=== PATIENT | male | born 1950 | race African-American/Black ===

== ENCOUNTER 2021-10-25 08:30 | Inpatient (IN) | payer OTHER, MEDICAID ==
[~2021-10-25] VITALS: Ht 188 cm; Wt 73.1 kg
[~2021-10-25 08:30] MED LIST: ACET-1080 PO; ALLO300T2 PO; BACL20TA PO; CHOL500021 PO; CHOLCAP10 PO; CYAN1TAB14 PO; DOCU-94 PO; FLUT110A IN; GABA-339 PO; KETO0.0233 LEFTEYE; MECL12.514 PO; MULT-1056 PO; TEMA30CA PO; TURM500C3 OR
[2021-10-25] MEDS ORDERED: ceFAZolin 1GM/50ML 100 ML IV ONE (09:12)
[2021-10-25] MEDS ORDERED: MINERAL OIL TOPICAL 10ml TOP ONE (09:21)
[2021-10-25] MEDS ORDERED: BUPIVACAINE W/ EPINEPH 0.5% INJ 50ML MDV IJ ONE (09:21)
[2021-10-25] MEDS ORDERED: THROMBIN (BOVINE) 5000 UNIT SOL VIAL ONE ×2 (09:21→10:44)
[2021-10-25] MEDS ORDERED: VANCOMYCIN HCL 1000 MG VL ONE (09:22)
[2021-10-25] MEDS ORDERED: MIDAZOLAM HCL 2MG/2ML 2ml VIAL (1mg/ml) ONE (09:42)
[2021-10-25] MEDS ORDERED: ONDANSETRON HCL 4 MG/2 ML VIAL ONE ×2 (09:42→14:00)
[2021-10-25] MEDS ORDERED: HYDROmorphone HCL 2 MG/ML VL/or syr ONE (09:42)
[2021-10-25] MEDS ORDERED: DexAMETHasone SOD PHOS 10MG/1ML VIAL INJ ONE ×2 (09:42→14:00)
[2021-10-25] MEDS ORDERED: fentaNYL CITRATE 100 MCG/2 ML VL ONE (09:42)
[2021-10-25] MEDS ORDERED: ROCURONIUM 10MG/ML 10ML VIAL IV ONE ×4 (09:42→14:00)
[2021-10-25] MEDS ORDERED: GLYCOPYRROLATE 0.2 MG/ML 1ML VIAL ONE ×2 (09:42→14:00)
[2021-10-25] MEDS ORDERED: PROPOFOL 10 MG/ML 20 ML IV ONE ×2 (09:43→14:00)
[2021-10-25] MEDS ORDERED: fentaNYL CITRATE 5 ML ONE (09:43)
[2021-10-25] MEDS ORDERED: TRANEXAMIC ACID 10 ML ONE ×2 (10:06→14:12)
[2021-10-25] MEDS ORDERED: NEOSTIGMINE 1 MG/ML INJ (10mg/10ML VIAL) ONE (14:00)
[2021-10-25] MEDS ORDERED: SUGAMMADEX 200mg/2ml Vial (100MG/ML) IV ONE (14:14)
[2021-10-25] MEDS: LACTATED RINGER'S 1,000 ML IV SCH (15:00)
[2021-10-25] MEDS ORDERED: HYDROmorphone HCL 2 MG/ML VL/or syr IV PRN ×3 (15:00→15:15)
[2021-10-25] MEDS ORDERED: NITROGLYCERIN 0.4 MG SL TAB SL PRN ×3 (15:00)
[2021-10-25] MEDS ORDERED: ONDANSETRON HCL 4 MG/2 ML VIAL IV PRN ×2 (15:00→15:15)
[2021-10-25] MEDS ORDERED: MORPHINE SULFATE INJ 2 MG/ml SYRG IV PRN ×3 (15:00)
[2021-10-25] MEDS ORDERED: oxyCODONE HCL 5MG TAB PO PRN (15:00)
[2021-10-25] MEDS ORDERED: METOCLOPRAMIDE HCL 5MG/ml INJ 2ml VIAL IV PRN (15:15)
[2021-10-25] MEDS ORDERED: fentaNYL CITRATE 100 MCG/2 ML VL IV PRN (15:15)
[2021-10-25] MEDS ORDERED: LABETALOL HCL 5 MG/ML 4ML SYRINGE IV PRN (15:15)
[2021-10-25] MEDS ORDERED: hydrALAZINE HCL 20 MG/ML VL IV PRN (15:15)
[2021-10-25 17:54] VITALS: BP 140/68
[2021-10-25 21:54] VITALS: BP 141/79
[2021-10-25] MEDS ORDERED: FLOVENT 110 MCG IN SCH (22:00)
[2021-10-25] MEDS: GABAPENTIN 300 MG CAP PO SCH (22:23)
[2021-10-25] MEDS: TEMAZEPAM 15 MG CAP PO SCH (22:23)
[2021-10-25] MEDS: ceFAZolin 1GM/50ML 50 ML IV SCH (22:23)
[2021-10-25] MEDS: DOCUSATE SOD 100 MG CAP PO SCH (22:24)
[2021-10-25] MEDS: SENNA 8.6 MG TAB PO SCH (22:24)
[2021-10-25] MEDS: MECLIZINE HCL 25 MG TAB PO SCH (22:24)
[2021-10-26] MEDS: LACTATED RINGER'S 1,000 ML IV SCH (01:30)
[2021-10-26 05:16] VITALS: BP 129/69
[2021-10-26 06:08] LABS: Basophils # (auto) 0 10 ^3/uL (0-0.2); Basophils % (auto) 0.1 % (0.0-2.0); Eosinophils # (auto) 0 10 ^3/uL (0-0.8); Hematocrit 34.2 % (41.0-53.0); Hemoglobin 11.6 g/dL (13.5-17.5); Lymphocytes # (auto) 0.8 10 ^3/uL (0.4-5.4); Lymphocytes % (auto) 7.9 % (10.0-50.0); Mean Corpuscular Hemoglobin 30.1 pg (28.0-32.0); Mean Corpuscular Hgb Conc. 33.8 g/dL (32.0-36.0); Mean Corpuscular Volume 89.1 fL (80.0-100.0); Monocytes # (auto) 0.5 10 ^3/uL (0-1.3); Monocytes % (auto) 5.5 % (0.0-12.0); Neutrophils # (auto) 8.5 10 ^3/uL (1.6-8.6); Neutrophils % (auto) 86.5 % (37.0-80.0); Red Blood Cells 3.84 10^6/uL (4.5-5.90); Red Cell Distribution Width 14.3 % (11.8-14.3); White Blood Cell 9.8 10^3/uL (4.4-10.8)
[2021-10-26] MEDS: ceFAZolin 1GM/50ML 50 ML IV SCH ×2 (06:11→14:30)
[2021-10-26] MEDS: GABAPENTIN 300 MG CAP PO SCH ×3 (06:12→21:00)
[2021-10-26] MEDS: MECLIZINE HCL 25 MG TAB PO SCH ×3 (06:12→21:01)
[2021-10-26 06:22] LABS: BUN/Creatinine Ratio 10.8; Calcium 7.8 mg/dL (8.5-10.1); Potassium 4.3 mmol/L (3.5-5.1)
[2021-10-26 08:28] VITALS: BP 129/72
[2021-10-26] MEDS: POLYETHYLENE GLYCOL 17 GM PWDR PO SCH (10:10)
[2021-10-26] MEDS: ALLOPURINOL 300 MG TAB PO SCH (10:10)
[2021-10-26] MEDS: OXYCODONE W/ ACETAMINOPHEN 5/325MG TABLET PO PRN ×3 (10:10→21:07)
[2021-10-26] MEDS: SENNA 8.6 MG TAB PO SCH ×2 (10:11→21:00)
[2021-10-26] MEDS: DOCUSATE SOD 100 MG CAP PO SCH ×2 (10:11→20:59)
[2021-10-26 12:54] VITALS: BP 143/88
[2021-10-26] MEDS ORDERED: TAMSULOSIN HYDROCHLORIDE 0.4 MG CAP PO ONE ×2 (13:45→14:15)
[2021-10-26] MEDS ORDERED: HEPARIN SODIUM (PORCINE) 5000 UNITS/ML 1ML VIAL SC SCH (14:00)
[2021-10-26 17:00] VITALS: BP 127/65
[2021-10-26] MEDS: TAMSULOSIN HYDROCHLORIDE 0.4 MG CAP PO SCH (18:25)
[2021-10-26 20:00] VITALS: BP 123/69
[2021-10-26] MEDS: TEMAZEPAM 15 MG CAP PO SCH (21:00)
[2021-10-26 22:00] VITALS: BP 123/69
[2021-10-27] VITALS (7 sets, daily range): BP systolic 105–135; BP diastolic 54–74
[2021-10-27 05:49] LABS: Basophils # (auto) 0 10 ^3/uL (0-0.2); Basophils % (auto) 0.5 % (0.0-2.0); Eosinophils # (auto) 0.1 10 ^3/uL (0-0.8); Eosinophils % (auto) 0.9 % (0.0-7.0); Hematocrit 31.9 % (41.0-53.0); Hemoglobin 11.1 g/dL (13.5-17.5); Lymphocytes % (auto) 12.6 % (10.0-50.0); Mean Corpuscular Hemoglobin 30.9 pg (28.0-32.0); Mean Corpuscular Hgb Conc. 34.8 g/dL (32.0-36.0); Monocytes # (auto) 0.7 10 ^3/uL (0-1.3); Monocytes % (auto) 9.1 % (0.0-12.0); Neutrophils # (auto) 6.3 10 ^3/uL (1.6-8.6); Neutrophils % (auto) 76.9 % (37.0-80.0); Nucleated Red Blood Cells % 0.1 %; Red Blood Cells 3.58 10^6/uL (4.5-5.90); Red Cell Distribution Width 14.1 % (11.8-14.3); White Blood Cell 8.2 10^3/uL (4.4-10.8)
[2021-10-27 06:03] LABS: INR 1.09 (0.9-1.15); Partial Thromboplastin Time 32.5 sec (23.6-33.0)
[2021-10-27 06:07] LABS: Potassium 3.9 mmol/L (3.5-5.1)
[2021-10-27] MEDS: GABAPENTIN 300 MG CAP PO SCH ×3 (06:07→22:17)
[2021-10-27] MEDS: MECLIZINE HCL 25 MG TAB PO SCH ×3 (06:07→22:17)
[2021-10-27 06:16] LABS: BUN/Creatinine Ratio 13.9; Calcium 7.7 mg/dL (8.5-10.1)
[2021-10-27] MEDS ORDERED: KETOTIFEN FUMARATE LEFTEYE SCH (10:00)
[2021-10-27] MEDS: ALLOPURINOL 300 MG TAB PO SCH (10:09)
[2021-10-27] MEDS: POLYETHYLENE GLYCOL 17 GM PWDR PO SCH (10:09)
[2021-10-27] MEDS: DOCUSATE SOD 100 MG CAP PO SCH ×2 (10:09→22:17)
[2021-10-27] MEDS: SENNA 8.6 MG TAB PO SCH ×2 (10:09→22:17)
[2021-10-27] MEDS: ENOXAPARIN SOD 40 MG/0.4 ML SYRINGE SC SCH (10:10)
[2021-10-27] MEDS: TAMSULOSIN HYDROCHLORIDE 0.4 MG CAP PO SCH (18:27)
[2021-10-27] MEDS ORDERED: TAMSULOSIN HYDROCHLORIDE 0.4 MG CAP PO ONE (20:00)
[2021-10-27] MEDS: TEMAZEPAM 15 MG CAP PO SCH (22:17)
[2021-10-28 05:00] VITALS: BP 134/76
[2021-10-28] MEDS: GABAPENTIN 300 MG CAP PO SCH ×2 (05:54→14:09)
[2021-10-28] MEDS: MECLIZINE HCL 25 MG TAB PO SCH ×2 (05:54→14:09)
[2021-10-28 09:06] VITALS: BP 135/79
[2021-10-28] MEDS: SENNA 8.6 MG TAB PO SCH (09:57)
[2021-10-28] MEDS: POLYETHYLENE GLYCOL 17 GM PWDR PO SCH (09:57)
[2021-10-28] MEDS: DOCUSATE SOD 100 MG CAP PO SCH (09:57)
[2021-10-28] MEDS: ALLOPURINOL 300 MG TAB PO SCH (09:57)
[2021-10-28] MEDS: ENOXAPARIN SOD 40 MG/0.4 ML SYRINGE SC SCH (09:57)
[2021-10-28] MEDS: OXYCODONE W/ ACETAMINOPHEN 5/325MG TABLET PO PRN (09:58)
[2021-10-28] MEDS ORDERED: TAM04C PO (12:49)
[2021-10-28 17:00] VITALS: BP 123/88
[2021-10-28] MEDS: TAMSULOSIN HYDROCHLORIDE 0.4 MG CAP PO SCH (18:24)
== END 2021-10-28 20:52 | disposition home or self-care (01) | DRG 517 ==
LOC: SUR 08:30 → OVERFLOW 14:58 → EAST 17:52
PROVIDERS: ADMIT Physician Assistant; ATTEND Orthopaedic Surgery
PROC: 01NB0ZZ Release Lumbar Nerve, Open Approach (ICD-10-PCS; principal; 2021-10-25 09:59)
PROC: 5A09357 Assistance with Respiratory Ventilation, Less than 24 Consecutive Hours, Continuous Positive Airway Pressure (ICD-10-PCS; 2021-10-26)
PROC: 5A09357 Assistance with Respiratory Ventilation, Less than 24 Consecutive Hours, Continuous Positive Airway Pressure (ICD-10-PCS; 2021-10-27)
DX: M48.062 Spinal stenosis, lumbar region with neurogenic claudication (principal); E66.9 Obesity, unspecified; M10.9 Gout, unspecified; N31.9 Neuromuscular dysfunction of bladder, unspecified; R33.9 Retention of urine, unspecified; Z68.30 Body mass index [BMI] 30.0-30.9, adult; Z20.822 Contact with and (suspected) exposure to COVID-19
CPT/HCPCS: 36415; 76000; 76705; 80048; 85025; 85610; 85730; 86850; 86900; 86901; 94660; 97116; 97163; 97530; G0378; J0690; J1100; J2250; J2405; J2704